=== PATIENT | male | born 1955 | race Caucasian/White ===

== ENCOUNTER → 2017-03-29 | Outpatient (CLI) | payer OTHER | LOC: FIMAGING 12:41 | PROVIDERS: ATTEND Internal Medicine Hematology & Oncology | DX: C43.9 Malignant melanoma of skin, unspecified (principal); K21.0 Gastro-esophageal reflux disease with esophagitis; K58.9 Irritable bowel syndrome, unspecified ==

== ENCOUNTER 2017-07-29 05:21 | Emergency (ER) | payer OTHER ==
[2017-07-29 05:28] VITALS: BP 141/87; PULSE 55; RESP 18; TEMP 97.8; O2SAT 93
--- NOTE | 2017-07-29 06:00 | EDPHY ---
H & P Stated Complaint: L hand numbness since 3am, sx yesterday HPI/ROS: HPI CHIEF COMPLAINT: Left finger and hand numbness. HISTORY OF PRESENT ILLNESS: This patient is a very pleasant 62-year-old male, yesterday he had rotator cuff surgery, his surgery was at noon yesterday at 5: 00 p.m. he recently released. He reports to me that his pain has been well controlled. He has not had any fever. He denies headache neck pain or chest pain. At 3:00 a.m. he woke up with some numbness and tingling in his left 5th digit. This progressed to his hand and wrist. He now reports that he is unable to move his left hand and wrist. His left hand and wrist feel weak. He does not perceive any pain. He decided come to the emergency room for evaluation. He tells me has no chest pain or shortness of breath. No fever. No arm pain. His pain is well controlled. Of note on exam he has great deal difficulty moving his left fingers and left hand and has very little movement of his left wrist. Past Medical History: Denies significant medical history Past Surgical History: Denies significant surgical history except for recent rotator cuff surgery yesterday. Social History: Denies daily use drugs alcohol tobacco products. Family History: Noncontributory. ROS REVIEW OF SYSTEMS: A comprehensive 10 point review of systems is otherwise negative aside from elements mentioned in the history of present illness. Exam Constitutional triage nursing summary reviewed, vital signs reviewed, awake/ alert. Eyes normal conjunctivae and sclera, EOMI, PERRLA. HENT normal inspection, atraumatic, moist mucus membranes, no epistaxis, neck supple/ no meningismus, no raccoon eyes. Respiratory clear to auscultation bilaterally, normal breath sounds, no respiratory distress, no wheezing. Cardiovascular rate normal, regular rhythm, no murmur, no edema, distal pulses normal. Gastrointestinal soft, non-tender, no rebound, no guarding, normal bowel sounds, no distension, no pulsatile mass. Genitourinary no CVA tenderness. Musculoskeletal no midline vertebral tenderness, full range of motion, no calf swelling, no tenderness of extremities, no meningismus, good pulses, neurovascularly intact. Skin pink, warm, & dry, no rash, skin atraumatic. Neurologic awake, alert and oriented x 3, AAOx3, moves all 4 extremities equally, motor intact, sensory intact, CN II-XII intact, normal cerebellar, normal vision, normal speech. Psychiatric normal mood/affect. Heme/Lymph/Immune no lymphadenopathy. Differential Diagnosis: Includes but is not limited to in a particular order nerve block, neuropathy, swelling Medical Decision Making: Plan for this patient I will touch base with Maikel Nieves. She recommends consulting anesthesia as this patient had a nerve block performed. She feels that the numbness and tingling of the left hand and decreased wrist movement hand movement is consistent with a nerve block. Recommends consulting anesthesia. The nerve block was placed by Dr. George Rios with anesthesiology yesterday. Will touch base with him. Re-evaluation: 0659: I spoke with Dr. Sung this patient's orthopedic surgeon she recommend that I speak with the anesthesiologist placed nerve block. I spoke with Dr. George Rios who is the anesthesiologist that place this patient's brachial plexus nerve block. He reports to me that the rate may be too high and causing him numbness and tingling of his left arm additionally the hand weakness is typical if the pump is living too much medication. Recommends change in the palm from 8-6. He also states that he is at [facility] today and cannot see the patient at this time emergency room however he will send 1 of his colleagues to come and evaluate the patient. Here in the emergency room is noted the patient has a warm extremity. It has a good pulse. Warm extremity. Good cap refill. He does have weakness at his wrist specifically when he goes to extend his hand. Also additionally he has weakness of his fingers. No relocation specialist strength. He states this is new over the evening since 3 o'clock this morning. He also complains of numbness and tingling of his hand. According to anesthesia this is typical for this. Will adjust his pump down from 8 to 6. 0714: Spoke with Dr. George Rios, with anesthesia. He is in [place] at this time. He will send anesthesiologist from upstairs to come and say hello to the patient. Discuss pump and block. After this the patient be discharge. Source: Patient - Personal History Current Tetanus/Diphtheria Vaccine: Yes Current Tetanus Diphtheria and Acellular Pertussis (TDAP): Yes - Medical/Surgical History Hx Asthma: No Hx Chronic Respiratory Disease: No Hx Diabetes: No Hx Cardiac Disease: No Hx Renal Disease: No Hx Cirrhosis: No Hx Alcoholism: No Hx HIV/AIDS: No Hx Splenectomy or Spleen Trauma: No Other PMH: rotator cuff sx, thyroid problem, GERD, - Social History Smoking Status: Never smoked Constitutional: Initial Vital Signs Temperature (C) 36.6 C 07/29/17 05:23 Heart Rate 55 L 07/29/17 05:23 Respiratory Rate 18 07/29/17 05:23 Blood Pressure 141/87 H 07/29/17 05:23 O2 Sat (%) 93 07/29/17 05:23 O2 Delivery Mode Room Air Allergies/Adverse Reactions: No Known Allergies Allergy (Unverified 07/29/17 05:28) Home Medications: Medication Instructions Recorded CEPHALEXIN 07/29/17 Cialis 07/29/17 Omeprazole 07/29/17 PERCOCET 2.5-325 MG TABLET 07/29/17 Synthroid 07/29/17 Departure - Departure Disposition: Home, Routine, Self-Care Clinical Impression: Neuropathy Condition: Good Instructions: Peripheral Neuropathy (ED), Paresthesia (ED) Additional Instructions: 1. Return emergency room if he develops worsening pain questions or concerns. 2. Please follow up with her orthopedic surgeon. 3. Additionally you may call Dr. George Rios your anesthesiologist at any time if you have any questions or concerns. Referrals: BR[facility] OVIEDO [Other] - As per Instructions
--- NOTE | 2017-07-29 10:05 | PDCONSULT ---
Microfilm Clerk Note: Left hand weak and numb s/p continuous interscalene block for RTC repair discussed with patient, it was a slowly progressive weakness with became dense around 3 AM Long discussion with pt. and about local anesthesia and duration of action. Pt. will decrease rate to 2 cc/hr and then titrate as needed. They have Dr. Rios's contact number if needed
== END 2017-07-29 09:03 | disposition home or self-care (01) ==
DX: G62.9 Polyneuropathy, unspecified (principal)

== ENCOUNTER 2018-02-23 17:09 | Emergency (ER) | payer OTHER ==
--- NOTE | 2018-02-23 17:42 | EDPHY ---
H & P Stated Complaint: bca r knee inj 2 weeks ago/inc swelling knee and into calf and foot Time Seen by Provider: 02/23/18 17:32 HPI/ROS: CHIEF COMPLAINT: Right leg swelling HISTORY OF PRESENT ILLNESS: The patient is a 62-year-old man who fell into a kneeling position 2 weeks ago in his right knee. He has had a swollen bursa over his right patella. It has not bothered him. He has been able to ambulate without difficulty. However it in the last 24 hr he has also developed some swelling in his right ankle. His primary recommended he come to get an ultrasound. He denies having any pain. No erythema. No warmth. REVIEW OF SYSTEMS: Constitutional: denies: chills, fever, recent illness, recent injury EENTM: denies: blurred vision, double vision, nose congestion Respiratory: denies: cough, shortness of breath Cardiac: denies: chest pain, irregular heart rate, lightheadedness, palpitations Gastrointestinal/Abdominal: denies: abdominal pain, diarrhea, nausea, vomiting, blood streaked stools Genitourinary: denies: dysuria, frequency, hematuria, pain Musculoskeletal: See HPI Skin: denies: lesions, rash, jaundice, bruising Neurological: denies: headache, numbness, paresthesia, tingling, dizziness, weakness Hematologic/Lymphatic: denies: blood clots, easy bleeding, easy bruising Immunologic/allergic: denies: HIV/AIDS, transplant EXAM: GENERAL: Well-appearing, well-nourished and in no acute distress. HEAD: Atraumatic, normocephalic. EYES: Pupils equal round and reactive to light, extraocular movements intact, sclera anicteric, conjunctiva are normal. ENT: TMs normal, nares patent, oropharynx clear without exudates. Moist mucous membranes. NECK: Normal range of motion, supple without lymphadenopathy or JVD. LUNGS: Breath sounds clear to auscultation bilaterally and equal. No wheezes rales or rhonchi. HEART: Regular rate and rhythm without murmurs, rubs or gallops. ABDOMEN: Soft, nontender, normoactive bowel sounds. No guarding, no rebound. No masses appreciated. BACK: No CVA tenderness, no spinal tenderness, step-offs or deformities EXTREMITIES: 1+ pitting edema in right ankle, moderate patellar bursa effusion. No knee effusion. Normal pulses distally. Normal range of motion, No clubbing or cyanosis. NEUROLOGICAL: Cranial nerves II through XII grossly intact. Normal speech, normal gait. 5/5 strength, normal movement in all extremities, normal sensation PSYCH: Normal mood, normal affect. SKIN: Warm, dry, normal turgor, no visible rashes or lesions. Source: Patient Exam Limitations: No limitations - Personal History Current Tetanus Diphtheria and Acellular Pertussis (TDAP): Yes - Medical/Surgical History Hx Asthma: No Hx Chronic Respiratory Disease: No Hx Diabetes: No Hx Cardiac Disease: No Hx Renal Disease: No Hx Cirrhosis: No Hx Alcoholism: No Hx HIV/AIDS: No Hx Splenectomy or Spleen Trauma: No Other PMH: rotator cuff sx, thyroid problem, GERD, - Family History Significant Family History: No pertinent family hx - Social History Smoking Status: Never smoked Alcohol Use: None Constitutional: Initial Vital Signs Temperature (C) 36.9 C 02/23/18 17:18 Heart Rate 58 L 02/23/18 17:18 Respiratory Rate 18 02/23/18 17:18 Blood Pressure 130/83 H 02/23/18 17:18 O2 Sat (%) 96 02/23/18 17:18 O2 Delivery Mode Room Air Allergies/Adverse Reactions: No Known Allergies Allergy (Verified 02/23/18 17:17) Home Medications: Medication Instructions Recorded Cialis 07/29/17 Omeprazole 07/29/17 PERCOCET 2.5-325 MG TABLET 07/29/17 Synthroid 07/29/17 Medical Decision Making - Diagnostics Imaging: Discussed imaging studies w/ train caller Radiologist ED Course/Re-evaluation: We discussed the ultrasound results. I did tap the patella bursa it is reddish tinged clear fluid. I will send to lab for culturing. Do not suspect infection at this point. Patient is greatly relieved. We discussed compression rest and elevation as well as ice. Will also give him a Patrick hose to use as needed. We discussed indications for returning Differential Diagnosis: Partial list of the Differential diagnosis considered include but were not limited to; patellar bursitis, lymphedema, DVT and although unlikely based on the history and physical exam, I also considered infection, fracture. I discussed these differential diagnoses and the plan with the patient as well as the usual and expected course. The patient understands that the diagnosis is provisional and that in medicine we are not always correct and that further workup is often warranted. Usual and customary warnings were given. All of the patient's questions were answered. The patient was instructed to return to the emergency department should the symptoms at all worsen or return, otherwise to followup with the physician as we discussed. - Data Points Laboratory Results: 02/23/18 18:55 Fl Pathologist Review Rc MINAYA MD Synovial Crystals NONE SEEN (NONE SEEN) Microbiology Results: MICROBIOLOGY 02/23/18 18:55 Knee - Aspirate Gram Stain - Final 02/23/18 18:55 Knee - Aspirate Anaerobic Culture - Preliminary Departure - Departure Disposition: Home, Routine, Self-Care Clinical Impression: Patellar bursitis of right knee, Lower extremity edema Condition: Fair Instructions: Knee Bursitis (ED), Leg Edema (ED) Referrals: [facility] OVIEDO [Other] - As per Instructions Gaurav Chatman MD [Medical Doctor] - 5-7 days, call for appt.
[2018-02-23 19:16] VITALS: BP 123/76
== END 2018-02-23 19:13 | disposition home or self-care (01) ==
DX: M70.51 Other bursitis of knee, right knee (principal); R60.0 Localized edema

== ENCOUNTER → 2018-04-20 | Outpatient (CLI) | payer OTHER | LOC: FIMAGING 14:47 | PROVIDERS: ATTEND Internal Medicine Hematology & Oncology | DX: Z12.89 Encounter for screening for malignant neoplasm of other sites (principal); C43.9 Malignant melanoma of skin, unspecified ==